=== PATIENT | female | born 1985 | race Caucasian/White ===

== ENCOUNTER → 2016-10-14 | Outpatient (CLI) | payer OTHER ==
[~2016-10-14] MED LIST: ASPI-390 PO; HYDR-4079 PO; MULT-506 PO; NORT10CA2 PO; VERA1TAB52 PO
== END | disposition home or self-care (01) ==
LOC: C.PAPS 09:14
PROVIDERS: ATTEND Obstetrics & Gynecology
DX: Z01.419 Encounter for gynecological examination (general) (routine) without abnormal findings (principal); Z87.898 Personal history of other specified conditions

== ENCOUNTER 2016-10-16 18:01 | Emergency (ER) | payer OTHER ==
[~2016-10-16] VITALS: Ht 167.6 cm; Wt 86.1 kg
[~2016-10-16 18:01] MED LIST changes: -ASPI-390 PO; -HYDR-4079 PO; -NORT10CA2 PO
[2016-10-16 18:12] VITALS: Ht 167.6 cm; Wt 86.1 kg
[2016-10-16] MEDS ORDERED: SODIUM CHLORIDE 0.9% 1000ML 1,000 ML IV STA (18:36)
[2016-10-16] MEDS ORDERED: KETOROLAC TROMETHAMINE 30 MG/ML VIAL IV STA (18:36)
[2016-10-16] MEDS ORDERED: PROCHLORPERAZINE 5 MG/ML 2 ML VIAL IV STA (18:36)
[2016-10-16] MEDS ORDERED: DiphenhydrAMINE HCL 50 MG/ML VIAL IV STA (18:36)
[2016-10-16] MEDS ORDERED: NORT10CA2 PO (18:40)
[2016-10-16] MEDS ORDERED: ASPI-390 PO (18:41)
[2016-10-16] MEDS ORDERED: HYDR-4079 PO (18:41)
[2016-10-16] MEDS ORDERED: DEXAMETHASONE SOD INJ 10 MG/ML VIAL IV ONE (18:45)
--- NOTE | 2016-10-16 19:41 | EMERGENCY ROOM VISIT NOTE ---
History First contact with patient: 18:23 Chief Complaint: HEADACHE Stated Complaint: MIGRANE History of Present Illness The patient is a 31 year old female who presents to the Emergency Department by private vehicle for evaluation of a migraine headache. She reports a long- standing history of migraine headaches for which she follows with Dr. Morin of neurology. She reports that she has taken nortriptyline and Vicodin without relief of symptoms. She reports photophobia, phonophobia, dizziness, blurry vision, nausea, and vomiting. She reports that all of these symptoms are consistent with previous migrainous headaches. She reports no new symptoms. This is not the worst headache of her life. She has had previous imaging studies of her brain which have been unremarkable. The patient denies any falls or recent head injury. She denies any fevers, chills, recent illness, or neck pain/stiffness. The patient rates her current discomfort as an 8/10. She denies any neck pain, numbness/weakness to the extremities, slurred speech, facial droop, unilateral weakness/numbness, chest pain, abdominal pain, hematemesis, hematochezia, or chance for . Review of Systems A complete 10-point Review of Systems was discussed with the patient, with pertinent positives and negatives listed in the History of Present Illness. All remaining Review of Systems questions can be considered negative unless otherwise specified. Past Medical/Surgical History Medical Problems: (1) Gastroparesis (2) Migraines (3) s/p repair paravaginal defect Family History No significant family history Social History Smoking Status: Current Every Day Smoker Smokeless Tobacco Use: No Alcohol Use: occasionally Drug Use: none Marital Status: Housing Status: lives with family Occupation Status: employed Current/Historical Medications Scheduled Multivitamin (Multivitamin), 1 TAB PO DAILY Nortriptyline (Pamelor), 10 MG PO QPM Scheduled PRN Cfohydl-Bpbghrflhtyyi-Vjiwfrja (Excedrin Migraine), 2 TAB PO DIRECTED PRN for Headache Hydrocodone/Acetaminophen 10MG/325MG ([place] 10MG/325MG), 1 TAB PO Q4H PRN for Pain Allergies Coded Allergies: Flu Virus Vaccine (Verified Allergy, Unknown, ANAPHYLAXIS, 06/28/16) Penicillamine (Verified Allergy, Unknown, HIVES, 01/25/15) Penicillins (Verified Allergy, Unknown, 10/16/16) Physical Exam Vital Signs Date Time Temp Pulse Resp B/P Pulse Ox O2 Delivery O2 Flow Rate FiO2 10/16/16 19:46 36.5 80 18 104/67 100 10/16/16 19:16 80 18 104/67 100 Room Air 10/16/16 18:12 36.5 110 20 130/82 97 Room Air Pain Rating (0-10): 8 Physical Exam VITAL SIGNS - Vital signs and nursing notes were reviewed. GENERAL - 31-year-old female appearing her stated age who is in no acute distress. Communicates well with provider and answers questions appropriately. HEAD - Normocephalic, Atraumatic. No Pena's Sign or Raccoon's Eyes. No depressed skull fractures palpable. EYES - PERRL with EOMI bilaterally. Sclera anicteric. Palpebral conjunctiva pink and moist with no injection noted. EARS - No deformities of external structures noted on gross examination bilaterally. No pain elicited with palpation of the tragus bilaterally. External auditory canals without discharge or otorrhea. Tympanic membranes pearly koch without retraction or bulging. NOSE - Midline and without cyanosis. No epistaxis or purulent drainage noted. Septum midline without deviation or septal hematoma noted. MOUTH/OROPHARYNX - Without perioral cyanosis. Buccal mucosa pink and moist and without leukoplakia. Tongue midline with equal elevation of palate bilaterally. No tonsillar hypertrophy, erythema, or exudates noted. Good dentition noted. NECK - Neck with FROM. Supple to palpation. No lymphadenopathy noted. No nuchal rigidity. LUNGS - Chest wall symmetric without accessory muscle use, intercostals retractions, or central cyanosis. Normal vesicular breath sounds CTA B/L. No wheezes, rales, or rhonchi appreciated. CARDIAC - RRR with S1/S2. No murmur, rubs, or gallops appreciated. EXTREMITIES - No pretibial edema present. +3/5 radial and dorsalis pedis pulses palpated throughout. FROM with no tremors, fasciculations, or clonus noted on PROM throughout. +5/5 strength noted in UE/LE bilaterally. NEUROLOGIC - Cranial nerves II through XII grossly intact. Sensory intact to light touch throughout. Patellar reflexes +2/4. Patient able to perform rapid alternating movements appropriately. Negative Pronator Drift. Negative finger-to -nose. PSYCH - A&Ox3 and cooperates fully with examiner. Pt is very pleasant and interacts well with examiner. Medical Decision & Procedures Medications Administered Medications (Trade) Dose Ordered Sig/Max Route Start Time Stop Time Status Last Admin Dose Admin Prochlorperazine Edisylate (Compazine Inj) 10 mg NOW STAT IV 10/16/16 18:36 10/16/16 18:39 DC 10/16/16 19:08 10 MG Diphenhydramine HCl (Benadryl Inj) 25 mg NOW STAT IV 10/16/16 18:36 10/16/16 18:39 DC 10/16/16 19:08 25 MG Ketorolac Tromethamine (Toradol Inj) 30 mg NOW STAT IV 10/16/16 18:36 10/16/16 18:39 DC 10/16/16 19:08 30 MG Dexamethasone Sodium Phosphate 10 mg 10 mg NOW ONCE IV 10/16/16 18:45 10/16/16 18:46 DC 10/16/16 19:07 10 MG Sodium Chloride (Nss 1000ml) 1,000 ml @ 999 mls/hr Q1H1M STAT IV 10/16/16 18:36 10/16/16 19:36 DC 10/16/16 18:50 999 MLS/HR ED Course Patient was seen and evaluated by myself. Previous emergency department visit notes were reviewed. IV lock was established. Patient was hydrated with a 1000 mL normal saline bolus. The patient received 10 g Decadron, 25 mg Benadryl , 10 mg Compazine, and 30 mg Toradol intravenously. Patient was monitored in the emergency Department for greater than 1.5 hours. She reports near complete resolve of her headache at this point. The patient was instructed to remain on her current course for her migraine headaches. She was encouraged to follow-up with her neurologist from today's visit. She was educated on worrisome symptoms for return visit to the emergency department. Patient discharged home in good condition. Medical Decision Given the patient's presentation and stated complaints, I did elect to perform the above-mentioned workup. The patient presents today with complaints of migraine headache. She has long-standing history of the same. She has no focal neurological deficits. Her exam is otherwise unremarkable. The patient complains responded to migraine cocktail. Patient will continue her current course of treatment outlined by her neurologist. She will return for any changing or worsening symptoms. Patient discharged home afebrile and in good condition. In the evaluation and treatment of this patient, the following differential diagnoses were considered: Migraine Headache, Intracranial Hemorrhage, Subdural Hematoma, Subarachnoid Hemorrhage, Cerebral Aneurysm, Temporal/Giant Cell Arteritis, Tension Headache, Meningitis, Encephalitis, or Hydrocephalus. Impression Primary Impression: Migraine Departure Information Dispostion Discharge/Transfer to [facility] Condition GOOD Referrals Charo Abdullahi M.D. (PCP) Patient Instructions ED Headache Migraine, My [facility] Additional Instructions You have been treated in the Emergency Department for a Headache. For pain control, you can use the following exeh-ujj-piqgpfo medicines (if >12 yo): - Regular strength (325mg/tab) Tylenol (acetaminophen) 2 tabs every 4-6 hours as needed. Do not exceed 12 tablets in a 24 hour period. Avoid taking more than 4 grams (4000 mg) of Tylenol per day. This includes any other sources of acetaminophen you may take on a regular basis. - Regular strength (200 mg/tab) Advil (ibuprofen) 1-2 tabs every 4-6 hours as needed. Do not exceed a dose of 3200 mg per day. You should relax in a quiet, dark place for the rest of the day. Avoid any possible triggers including: cigarette smoke, caffeine, nicotine, chocolate, wine, beer, loud noises or music, or bright lights. You should schedule a follow-up appointment in 2-3 days with your Primary Care Provider or established Neurologist for further evaluation and treatment of your Headache. Return to the Emergency Department if your current symptoms worsen despite treatment course outlined above, or if you develop any of the following symptoms : intractable pain despite aforementioned treatment course, visual disturbances , loss of vision, unilateral weakness or facial drooping, slurring of speech, loss of coordination, or loss of consciousness. Problem Qualifiers Primary Impression: Migraine Migraine type: other Status migrainosus presence: without status migrainosus Intractability: not intractable Qualified Codes: G43.809 - Other migraine, not intractable, without status migrainosus
[2016-10-16 19:46] VITALS: BP 104/67; PULSE 80; TEMP 36.5; O2SAT 100
== END 2016-10-16 19:48 | disposition home or self-care (01) ==
LOC: C.EDB 18:03 → C.EDC 19:48
DX: G43.909 Migraine, unspecified, not intractable, without status migrainosus (principal); K31.84 Gastroparesis; F17.200 Nicotine dependence, unspecified, uncomplicated; Z98.890 Other specified postprocedural states; Z79.899 Other long term (current) drug therapy; Z88.0 Allergy status to penicillin; Z88.8 Allergy status to other drugs, medicaments and biological substances

== ENCOUNTER 2017-09-22 02:58 | Emergency (ER) | payer OTHER ==
[~2017-09-22] VITALS: Ht 170.2 cm; Wt 76.9 kg
[~2017-09-22 02:58] MED LIST changes: +ASPI-390 PO; +HYDR-4079 PO; -VERA1TAB52 PO
[2017-09-22 03:02] VITALS: Ht 170.2 cm; Wt 76.9 kg
[2017-09-22] MEDS ORDERED: METOCLOPRAMIDE HCL INJ 5 MG/ML 2 ML VIAL IV STA (03:08)
[2017-09-22] MEDS ORDERED: SODIUM CHLORIDE 0.9% 1000ML 2,000 ML IV STA (03:08)
[2017-09-22] MEDS ORDERED: DiphenhydrAMINE HCL 50 MG/ML VIAL IV STA (03:08)
[2017-09-22] MEDS ORDERED: KETOROLAC TROMETHAMINE 30 MG/ML VIAL IV STA (03:08)
[2017-09-22 03:28] LABS: BASO % 0.1 %; BASO ABS # 0.01 K/uL (0-0.2); EOS % 0.8 %; EOS ABS # 0.06 K/uL (0-0.5); HEMATOCRIT 38.5 % (37-47); HEMOGLOBIN 13.5 g/dL (12.0-16.0); IG# 0.02 K/uL (0.00-0.02); LYMPH % 9.6 %; LYMPH ABS # 0.76 K/uL (1.2-3.4); MEAN CELL VOLUME 93.4 fL (80-100); MEAN CORPUSCULAR HEMOGLOBIN 32.8 pg (25-34); MEAN CORPUSCULAR HGB CONC 35.1 g/dl (32-36); MEAN PLATELET VOLUME 12.1 fL (7.4-10.4); MONO % 4.8 %; MONO ABS # 0.38 K/uL (0.11-0.59); NEUT % 84.4 %; PLATELET COUNT 161 K/uL (130-400); RED CELL DISTRIBUTION WIDTH CV 12.7 % (11.5-14.5); RED CELL DISTRIBUTION WIDTH SD 43.5 fL (36.4-46.3); WHITE BLOOD COUNT 7.93 K/uL (4.8-10.8)
[2017-09-22 03:48] LABS: CALCIUM 8.6 mg/dl (8.5-10.1); CREATININE 0.67 mg/dl (0.60-1.20); POTASSIUM 3.5 mmol/L (3.5-5.1)
[2017-09-22 04:01] LABS: INFLUENZA B ANTIGEN Neg for Influ B (NEG)
--- NOTE | 2017-09-22 04:13 | EMERGENCY ROOM VISIT NOTE ---
History First contact with patient: 03:02 Chief Complaint: VOMITING Stated Complaint: FLU Nursing Triage Summary: Patient c/o fever, headache, and vomiting that began last pm. Hx: migraine. History of Present Illness The patient is a 32 year old female who presents to the Emergency Room with complaints of fever, chills, cough, congestion, headache, nausea and vomiting with body aches and pains for the past day. Patient has a history of migraines. She did not get the flu shot. 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 Patient denies dyspnea, chest pain, abdominal pain, diarrhea, urinary symptoms, neck stiffness. Review of Systems See HPI for pertinent positives & negatives. A total of 10 systems reviewed and were otherwise negative. Past Medical/Surgical History Medical Problems: (1) Gastroparesis (2) Migraines (3) s/p repair paravaginal defect Family History No significant family history Social History Smoking Status: Never Smoker Alcohol Use: occasionally Drug Use: none Marital Status: Housing Status: lives with family Occupation Status: employed Current/Historical Medications Scheduled Multivitamin (Multivitamin), 1 TAB PO DAILY Scheduled PRN Xxivpar-Uqqibqaekison-Xevkdxsz (Excedrin Migraine), 2 TAB PO DIRECTED PRN for Headache Hydrocodone/Acetaminophen 10MG/325MG ([place] 10MG/325MG), 1 TAB PO Q4H PRN for Pain Physical Exam Vital Signs Date Time Temp Pulse Resp B/P (MAP) Pulse Ox O2 Delivery O2 Flow Rate FiO2 09/22/17 03:54 37.5 86 16 124/68 96 Room Air 09/22/17 03:02 37.5 116 16 128/81 96 Room Air Physical Exam VITALS: Vitals are noted on the nurse's note and reviewed by myself. Vital signs stable. GENERAL: White female vomiting, in no acute distress, nondiaphoretic, well- developed well-nourished. SKIN: The skin was without rashes, erythema, edema, or bruising. There is no tenting of the skin. Capillary reflex less than 2 seconds. HEAD: Normocephalic atraumatic. EARS: External auditory canals clear, tympanic membranes pearly koch without erythema or effusion bilaterally. EYES: Pupils equal round and reactive to light and accommodation. Conjunctivae without injection, sclerae without icterus. Extraocular movements intact. NOSE: Patent, turbinates without inflammation or discharge. No sinus tenderness. MOUTH: Mucous membranes mildly dry. Pharynx without erythema or exudate. Uvula midline. Airway patent. Tongue does not deviate. NECK: Supple without nuchal rigidity. No lymphadenopathy. No thyromegaly. Cervical spine is nontender. No JVD. HEART: Regular rate and rhythm without murmurs gallops or rubs. LUNGS: Clear to auscultation bilaterally without wheezes, rales or rhonchi. No dullness to percussion. No retractions or accessory muscle use. ABDOMEN: Positive bowel sounds x 4. Normal tympanic percussion. Soft, nontender, without masses or organomegaly. Lopez sign negative. No guarding or rebound tenderness. MUSCULOSKELETAL: No muscle atrophy, erythema, or edema noted. NEURO: Patient was alert and oriented to person place and time. Normal sensation to light and sharp touch. No focal neurological deficits. Medical Decision & Procedures Laboratory Results 09/22/17 03:15 Red Blood Count 4.12, Mean Corpuscular Volume 93.4, Mean Corpuscular Hemoglobin 32.8, Mean Corpuscular Hemoglobin Concent 35.1, Mean Platelet Volume 12.1, Neutrophils (%) (Auto) 84.4, Lymphocytes (%) (Auto) 9.6, Monocytes (%) (Auto) 4.8, Eosinophils (%) (Auto) 0.8, Basophils (%) (Auto) 0.1, Neutrophils # (Auto) 6.70, Lymphocytes # (Auto) 0.76, Monocytes # (Auto) 0.38, Eosinophils # (Auto) 0.06, Basophils # (Auto) 0.01 09/22/17 03:15 Test 09/22/17 03:09 09/22/17 03:15 Influenza Type A Antigen Neg for Influ A (NEG) Influenza Type B Antigen Neg for Influ B (NEG) White Blood Count 7.93 K/uL (4.8-10.8) Red Blood Count 4.12 M/uL (4.2-5.4) Hemoglobin 13.5 g/dL (12.0-16.0) Hematocrit 38.5 % (37-47) Mean Corpuscular Volume 93.4 fL (80-100) Mean Corpuscular Hemoglobin 32.8 pg (25-34) Mean Corpuscular Hemoglobin Concent 35.1 g/dl (32-36) Platelet Count 161 K/uL (130-400) Mean Platelet Volume 12.1 fL (7.4-10.4) Neutrophils (%) (Auto) 84.4 % Lymphocytes (%) (Auto) 9.6 % Monocytes (%) (Auto) 4.8 % Eosinophils (%) (Auto) 0.8 % Basophils (%) (Auto) 0.1 % Neutrophils # (Auto) 6.70 K/uL (1.4-6.5) Lymphocytes # (Auto) 0.76 K/uL (1.2-3.4) Monocytes # (Auto) 0.38 K/uL (0.11-0.59) Eosinophils # (Auto) 0.06 K/uL (0-0.5) Basophils # (Auto) 0.01 K/uL (0-0.2) RDW Standard Deviation 43.5 fL (36.4-46.3) RDW Coefficient of Variation 12.7 % (11.5-14.5) Immature Granulocyte % (Auto) 0.3 % Immature Granulocyte # (Auto) 0.02 K/uL (0.00-0.02) Anion Gap 5.0 mmol/L (3-11) Est Creatinine Clear Calc Drug Dose 130.1 ml/min Estimated GFR () 135.8 Estimated GFR (Non- 117.1 BUN/Creatinine Ratio 17.1 (10-20) Calcium Level 8.6 mg/dl (8.5-10.1) Medications Administered Medications (Trade) Dose Ordered Sig/Max Route Start Time Stop Time Status Last Admin Dose Admin Sodium Chloride 2,000 ml @ 999 mls/hr Q2H1M STAT IV 09/22/17 03:08 09/22/17 05:08 09/22/17 03:22 999 MLS/HR Ketorolac Tromethamine (Toradol Inj) 30 mg NOW STAT IV 09/22/17 03:08 09/22/17 03:10 DC 09/22/17 03:24 30 MG Metoclopramide HCl (Reglan Inj) 10 mg NOW STAT IV 09/22/17 03:08 09/22/17 03:10 DC 09/22/17 03:22 10 MG Diphenhydramine HCl (Benadryl Inj) 25 mg NOW STAT IV 09/22/17 03:08 09/22/17 03:10 DC 09/22/17 03:23 25 MG ED Course Prior records/ancillary studies reviewed. Triage Nursing notes reviewed. Additional history obtained from family. The patient's history was concerning for fever. Differential diagnosis: Etiologies such as viral syndrome, otitis, pharyngitis, pneumonia, influenza, meningitis, urinary tract infection, sepsis, bacteremia, as well as others were entertained. Physical examination: Patient is alert and vomiting ER treatment provided: IV fluids, Toradol, Reglan, Benadryl On reassessment the patient felt better. Diagnostics interpreted by me: The labs revealed no worrisome leukocytosis or electrolyte abnormality. Negative influenza Imaging studies: Chest x-ray with no acute consolidation, pneumothorax or free air per my interpretation This appears to be consistent with influenza-like illness. Patient was neurovascularly and neurologically intact. She had no signs of meningitis. She is tolerating fluids. She is advised to take medicines as directed, rest, stay well-hydrated and to follow-up family care in a few days or here in the ER sooner for high fevers, lethargy, neck stiffness, worsening signs or symptoms or as needed. By the evaluation outlined above emergent etiologies such as otitis, pharyngitis, pneumonia, meningitis, urinary tract infection, sepsis, bacteremia, as well as others were deemed relatively unlikely. The pt informed about the findings as listed above. All questions were answered and pleased with the treatment. Return instructions were outlined and the patient was discharged in stable condition. Referral: The patient was referred back to their primary care physician for follow-up in 2 to 3 days for a recheck of the current condition. case reviewed with my Attending Medical Decision As above Medication Reconcilliation Current Medication List: was personally reviewed by me Blood Pressure Screening Patient's blood pressure: Normal blood pressure Impression Primary Impression: Influenza Additional Impression: Headache Departure Information Dispostion Home / Self-Care Condition GOOD Referrals No Doctor, Assigned (PCP) Patient Instructions My [facility] Additional Instructions Acetaminophen(Tylenol) may be used for fever or pain. Use 1000mg every six hours as needed. Avoid using more than 3000mg in a 24 hour period. (AND/OR) Ibuprofen(Motrin, Advil) may be used for fever or pain. Use 600mg every six hours as needed. Take with food. Avoid using more than 2400mg in a 24 hour period. Do not use 2400mg per day for more than three consecutive days without physician direction. Prolonged inappropriate use can lead to stomach upset or ulcers. Afrin nasal spray: 2-3 sprays to each nostril twice daily as needed for congestion. Do not use for more than 3-4 days because it can lead to worsening rebound congestion. Pseudoephedrine(Sudaphed): 30-60mg every 6 hours as needed for nasal congestion. Do not take this with other stimulant products or supplements. Rest and drink plenty of fluids. Controlling your fever with Tylenol and Ibuprofen as above will make you feel better. Wash your hands after nose blowing, sneezing, or coughing. Most germs are spread through contact, therefore improper hygiene may result in your close contacts and loved ones becoming ill just like you. Continue current medications. Return to the ER for severe headache, neck stiffness, chest pain, difficulty breathing, fevers, vomiting, worsening of your condition, or as needed. Follow up with your primary physician this week for a recheck of your current condition. Problem Qualifiers
[2017-09-22] MEDS ORDERED: ONDANSETRON HOME PACK 4MG OD TAB ONE (04:18)
[2017-09-22 04:36] VITALS: BP 104/67; PULSE 93; TEMP 37.1; O2SAT 98
--- NOTE | 2017-09-22 07:17 | DIAGNOSTIC IMAGING REPORT ---
TWO VIEW CHEST CLINICAL HISTORY: Cough and fever. FINDINGS: PA and lateral chest radiographs are compared to study dated 09/27/2015. The cardiomediastinal silhouette is unremarkable. The lungs and pleural spaces are clear. There is no pneumothorax. The bony thorax appears intact. Cholecystectomy clips are noted. IMPRESSION: No active disease in the chest. Electronically signed by: Toro Turner M.D. 09/22/2017 7:16 AM Dictated Date/Time: 09/22/2017 7:16 AM
== END 2017-09-22 04:38 | disposition home or self-care (01) ==
LOC: C.EDB 02:59 → C.EDA 04:38
DX: J11.1 Influenza due to unidentified influenza virus with other respiratory manifestations (principal); G43.909 Migraine, unspecified, not intractable, without status migrainosus; K31.84 Gastroparesis

== ENCOUNTER 2022-07-03 20:16 | Inpatient (IN) ==
--- NOTE | 2022-07-03 20:39 | Emergency Department Note ---
Impression & Plan Chest pain, Body aches, Hypokalemia, Hypocalcemia ED Provider Note NAME: HATTIE DON AGE: 37 SEX: F : 1985 ARRIVES VIA: Ambulance INFORMANT: Patient, ED PROVIDER(S): Art Davalos DO CHIEF COMPLAINT: Flulike symptoms HPI: The patient is a 37-year-old female who presented to the emergency department for flulike symptoms. The patient describes chest burning which began earlier today. The patient states that she started having chest burning and palpitations. She checked her pulse at 1 point and states it was 170 bpm. She also states her pulse ox was low. She denies having any leg swelling. She does complain of a cough and sore throat. She also complains of a headache. She states that she has been exposed to the flu at work. She denies having any vomiting. She has had no abdominal pain. She denies having any diarrhea. She called 911 and arrived at the emergency department via ambulance. The patient states that she has a history of anxiety. She states that some of the symptoms could be from anxiety but she is also very concerned about the other symptoms. She states that she is been compliant with her outpatient medications otherwise. ROS: See above HPI for pertinent positives & negatives. A total of 10 systems reviewed and were otherwise negative. PAST MEDICAL HISTORY: See Below PAST SURGICAL HISTORY: See Below FAMILY HISTORY: See Below SOCIAL HISTORY: See Below HOME MEDICATIONS: See Below ALLERGIES: See Below VITALS: See Below PHYSICAL EXAMINATION: GENERAL: Patient is awake alert in no acute distress patient is resting comfortably and showing no signs of anxiety EYES: The conjunctivae are clear. The pupils are round and reactive. EARS, NOSE, MOUTH AND THROAT: The nose is without any evidence of any deformity. NECK: The neck is nontender and supple. RESPIRATORY: Normal respiratory effort is noted there is no evidence of wheezing rhonchi or rales CARDIOVASCULAR: Regular rate and rhythm noted there no murmurs rubs or gallops normal S1 normal S2. GASTROINTESTINAL: The abdomen is soft. Abdomen is nontender. MUSCULOSKELETAL/EXTREMITIES: There is no evidence of gross deformity full range of motion is noted in the hips and shoulders. SKIN: There is no obvious evidence of any rash. There are no petechiae, pallor or cyanosis noted. NEUROLOGIC: Patient is awake alert and oriented x3 strength is symmetric patellar reflexes are 2+ bilaterally MEDICAL DECISION MAKING: The patient is a 37-year-old female who presented to the emergency department for an evaluation of multiple complaints. The patient was unsure if she had the flu. She was having chest burning as well as difficulty breathing. I discussed patient's laboratory and radiographic studies with her. EKG did not appear to show any signs of ischemia. Cardiac biomarker was negative. She was found to multiple electrolyte abnormalities including calcium and potassium. These were replaced in the emergency department but given the degree of how low they are she may require further inpatient electrolyte replacement. For this reason the case was discussed with the [facility] hospitalist. Triage Nursing notes reviewed. Prior medical records reviewed Vital Signs: reviewed and remarkable for no significant abnormalities Differential diagnosis: Cardiac ischemia, aortic dissection, pulmonary embolism, pneumothorax, pneumonia, pericarditis, myocarditis, esophageal rupture, GERD, cholecystitis, pancreatitis, musculoskeletal, as well as other pathologies. ER treatment provided: See below Diagnostics interpreted by me: ECG: EKG was obtained in the emergency department. My interpretation is normal sinus rhythm at 80 bpm. There was no ectopy. There was no acute ST segment abnormalities noted. This was compared to a tracing from September 27, 2015. No changes were noted. Cardiac Monitoring: An order was placed for continuous cardiac monitoring. The monitor shows a rate of 78 bpm with sinus rhythm. Laboratory studies: As stated above and show below. Imaging studies: See below Consultation(s): Dr. Nova was notified about the patient. Past Med/Surg History Medical History Anxiety Gastroparesis H/O menorrhagia Migraines Surgical History Family history of reaction to anesthesia SON-HALLUCINATIONS H/O laparoscopy History of colonoscopy History of tooth extraction Hx of cholecystectomy S/P tubal ligation Family History Father Alcohol abuse Anxiety Grandmother Diabetes Mother Anxiety Sister Anxiety Grandmother (Maternal) Family history of diabetes mellitus Denies family history of Ovarian cancer Prostate cancer Heart disease Breast cancer Colorectal cancer Social History Smoking Status: Current some day smoker Tobacco Type: E-cigarettes / Vaping Age Started Using Tobacco: 15; Age Quit Using Tobacco: 29; packs per day: 2; Years Smoked: 14; Cigarettes Per Day: 40; Second Hand Exposure: Yes ( A CHILD); Hx Alcohol Use: Yes Alcohol type: wine Hx Substance Use: No Preferred Language: Belarusian Associate Chief Nurse Required: No Beliefs That Will Affect Care: None marital status: Current Living Situation: Family current occupational status: employed Feels Safe at Home: Yes Diet Comment: keto caffeine: Yes Dental Care, Regularly: Yes Physical Activity Frequency: 1-2 Times per Week Assistive Devices: Glasses Allergies Allergies Allergy/AdvReac Type Severity Reaction Status Date / Time Penicillins Allergy Severe Anaphylaxis Verified 07/03/22 20:58 Home Meds Home Medications Medication Instructions Recorded Confirmed dietary supplement 1 cap PO DAILY 07/03/22 07/03/22 Results & Data (ED) Vital Signs Vital Signs - 24 hr 07/03/22 20:42 07/03/22 20:10 07/03/22 21:00 Temperature 37.0 C Temperature Source Oral Pulse Rate 90 86 Pulse Rate from SpO2 Sensor 86 Respiratory Rate 20 16 Respiratory Effort / Characteristics Non-Labored Spontaneous Respiratory Depth Normal Blood Pressure 133/84 128/77 Blood Pressure Mean 100 94 Pulse Oximetry 99 99 95 Oxygen Delivery Method Room Air Room Air Room Air Sepsis Recent Fever Within 48 Hours No Sepsis New/Unexplained Change in Mental Status No Sepsis Action Taken by Nursing No Action Required 07/03/22 22:00 07/03/22 22:30 Temperature Temperature Source Pulse Rate 89 78 Pulse Rate from SpO2 Sensor 81 80 Respiratory Rate 20 24 Respiratory Effort / Characteristics Respiratory Depth Blood Pressure 114/83 Blood Pressure Mean 93 Pulse Oximetry 98 97 Oxygen Delivery Method Room Air Room Air Sepsis Recent Fever Within 48 Hours Sepsis New/Unexplained Change in Mental Status Sepsis Action Taken by [facility] Medications Current Medication List: was personally reviewed by me Laboratory Data Attestation: I reviewed the patient's lab results. Result diagrams: 07/03/22 20:08 07/03/22 21:27 Lab Results 07/03/22 07/03/22 07/03/22 Range/Units 20:08 20:08 20:08 WBC 7.83 (4.8-10.8) K/ul RBC 4.07 (3.93-5.22) M/uL Hgb 13.4 (12.0-16.0) g/dl Hct 37.5 (34.1-44.9) % MCV 92.1 (80.0-100.0) fL MCH 32.9 (25.0-34.0) pg MCHC 35.7 (32.0-36.0) g/dL RDW Std Deviation 39.6 (36.4-46.3) fL RDW Coeff of Kadi 11.8 (11.5-14.5) % Plt Count 198 (130-400) K/uL MPV 12.3 (9.4-12.3) fL Immature Gran % (Auto) 0.4 % Neut % (Auto) 62.1 % Lymph % (Auto) 29.5 % Bulloch % (Auto) 6.6 % Eos % (Auto) 1.1 % Baso % (Auto) 0.3 % Neut # (Auto) 4.86 (1.4-6.5) K/uL Lymph # (Auto) 2.31 (1.2-3.4) K/uL Bulloch # (Auto) 0.52 (0.24-0.82) K/uL Eos # (Auto) 0.09 (0-0.50) K/uL Baso # (Auto) 0.02 (0-0.2) K/uL Immature Gran # (Auto) 0.03 H (0.00-0.02) K/uL D-Dimer 240 (0-500) ug/L FEU Sodium Cancelled Potassium Cancelled Chloride Cancelled Carbon Dioxide Cancelled Anion Gap Cancelled BUN Cancelled Creatinine Cancelled Est Cr Clr Drug Dosing Cancelled Est GFR ( Amer) Cancelled Est GFR (Non-Af Amer) Cancelled BUN/Creatinine Ratio Cancelled Glucose Cancelled Calcium Cancelled Magnesium Total Bilirubin Cancelled AST Cancelled ALT Cancelled Alkaline Phosphatase Cancelled Troponin I High Sens < 2.3 (0-14) pg/ml Total Protein Cancelled Albumin Cancelled Globulin Cancelled Albumin/Globulin Ratio Cancelled Lipase 30 (11-82) U/L HCG, Qual (Negative) SARS-CoV-2 (PCR) (Negative) Influenza Type A (PCR) (Neg) Influenza Type B (PCR) (Neg) RSV (RT-PCR) (Neg) 07/03/22 07/03/22 07/03/22 Range/Units 20:08 20:08 20:27 WBC (4.8-10.8) K/ul RBC (3.93-5.22) M/uL Hgb (12.0-16.0) g/dl Hct (34.1-44.9) % MCV (80.0-100.0) fL MCH (25.0-34.0) pg MCHC (32.0-36.0) g/dL RDW Std Deviation (36.4-46.3) fL RDW Coeff of Kadi (11.5-14.5) % Plt Count (130-400) K/uL MPV (9.4-12.3) fL Immature Gran % (Auto) % Neut % (Auto) % Lymph % (Auto) % Bulloch % (Auto) % Eos % (Auto) % Baso % (Auto) % Neut # (Auto) (1.4-6.5) K/uL Lymph # (Auto) (1.2-3.4) K/uL Bulloch # (Auto) (0.24-0.82) K/uL Eos # (Auto) (0-0.50) K/uL Baso # (Auto) (0-0.2) K/uL Immature Gran # (Auto) (0.00-0.02) K/uL D-Dimer (0-500) ug/L FEU Sodium Potassium Chloride Carbon Dioxide Anion Gap BUN Creatinine Est Cr Clr Drug Dosing Est GFR ( Amer) Est GFR (Non-Af Amer) BUN/Creatinine Ratio Glucose Calcium Magnesium TNP Total Bilirubin AST ALT Alkaline Phosphatase Troponin I High Sens (0-14) pg/ml Total Protein Albumin Globulin Albumin/Globulin Ratio Lipase (11-82) U/L HCG, Qual Negative (Negative) SARS-CoV-2 (PCR) NEGATIVE (Negative) Influenza Type A (PCR) Negative (Neg) Influenza Type B (PCR) Negative (Neg) RSV (RT-PCR) Negative (Neg) 07/03/22 Range/Units 21:27 WBC (4.8-10.8) K/ul RBC (3.93-5.22) M/uL Hgb (12.0-16.0) g/dl Hct (34.1-44.9) % MCV (80.0-100.0) fL MCH (25.0-34.0) pg MCHC (32.0-36.0) g/dL RDW Std Deviation (36.4-46.3) fL RDW Coeff of Kadi (11.5-14.5) % Plt Count (130-400) K/uL MPV (9.4-12.3) fL Immature Gran % (Auto) % Neut % (Auto) % Lymph % (Auto) % Bulloch % (Auto) % Eos % (Auto) % Baso % (Auto) % Neut # (Auto) (1.4-6.5) K/uL Lymph # (Auto) (1.2-3.4) K/uL Bulloch # (Auto) (0.24-0.82) K/uL Eos # (Auto) (0-0.50) K/uL Baso # (Auto) (0-0.2) K/uL Immature Gran # (Auto) (0.00-0.02) K/uL D-Dimer (0-500) ug/L FEU Sodium 145 Potassium 2.1 L* Chloride 125 H Carbon Dioxide 17 L Anion Gap 3 BUN 7 Creatinine 0.24 L Est Cr Clr Drug Dosing 363.9 Est GFR ( Amer) > 150.0 Est GFR (Non-Af Amer) > 150.0 BUN/Creatinine Ratio 29.2 H Glucose 58 L Calcium 4.6 L* Magnesium Total Bilirubin 0.4 AST 9 L ALT 7 Alkaline Phosphatase 33 L Troponin I High Sens (0-14) pg/ml Total Protein 3.7 L Albumin 2.3 L Globulin 1.4 L Albumin/Globulin Ratio 1.6 Lipase (11-82) U/L HCG, Qual (Negative) SARS-CoV-2 (PCR) (Negative) Influenza Type A (PCR) (Neg) Influenza Type B (PCR) (Neg) RSV (RT-PCR) (Neg) Administered Medications Discontinued Medications Calcium Chloride 1,000 mg/ (Dextrose) 60 mls @ 240 mls/hr IV NOW STA Stop: 07/03/22 23:08 Last Admin: 07/03/22 23:37 Dose: 240 mls/hr Documented By: CAMERON Potassium Chloride (Potassium Chloride 10 Meq Tabcr) 20 meq PO NOW STA Stop: 07/03/22 22:36 Last Admin: 07/03/22 22:51 Dose: 20 meq Documented By: ALVAREZ Imaging Data Radiologist's Impression: Chest X-Ray 11/03/22 20:21 XR chest 1V portable CLINICAL HISTORY: Chest Pain TECHNIQUE: Single frontal radiograph of the chest was obtained. Comparison: Comparison is made to chest radiograph 09/27/2015 FINDINGS: No lines and tubes are seen. The cardiomediastinal silhouette is normal. The lungs are clear. No evidence of pleural effusion or pneumothorax. IMPRESSION: No acute chest disease. ACT 112: Negative or not required by law. Electronically signed by: Anderson López M.D. 07/03/2022 9:05 PM Discharge Plan Visit Data Chief Complaint: Flu Like Symptoms Stated Complaint: FLU-LIKE SYMPTOMS ED Provider: Art Davalos Discharge Problem: Chest pain, Body aches, Hypokalemia, Hypocalcemia Patient Disposition: Being Evaluated by Hospitalist Forms Stand Alone Forms: [facility] Prescriptions Prescriptions: No Action dietary supplement Capsule 1 cap PO DAILY Referrals Referrals: PCP,NO [Physician] -
[2022-07-03 20:43] LABS: Basophils # (auto) 0.02 K/uL (0-0.2); Basophils % (auto) 0.3 %; Eosinophils # (auto) 0.09 K/uL (0-0.50); Eosinophils % (auto) 1.1 %; Hematocrit (blood only) 37.5 % (34.1-44.9); Hemoglobin 13.4 g/dl (12.0-16.0); Immature Granulocytes # (auto) 0.03 K/uL (0.00-0.02); Immature Granulocytes % (auto) 0.4 %; Lymphocytes # (auto) 2.31 K/uL (1.2-3.4); Lymphocytes % (auto) 29.5 %; Mean Corpuscular Hemoglobin 32.9 pg (25.0-34.0); Mean Corpuscular Hgb Conc 35.7 g/dL (32.0-36.0); Mean Corpuscular Volume 92.1 fL (80.0-100.0); Mean Platelet Volume 12.3 fL (9.4-12.3); Monocytes # (auto) 0.52 K/uL (0.24-0.82); Monocytes % (auto) 6.6 %; Neutrophils # (auto) 4.86 K/uL (1.4-6.5); Neutrophils % (auto) 62.1 %; Platelet Count 198 K/uL (130-400); RDW Coefficient of Variation 11.8 % (11.5-14.5); RDW Standard Deviation 39.6 fL (36.4-46.3); Red Blood Count 4.07 M/uL (3.93-5.22); White Blood Count 7.83 K/ul (4.8-10.8)
[2022-07-03 21:03] LABS: D Dimer 240 ug/L FEU (0-500)
--- NOTE | 2022-07-03 21:07 | XRay Report ---
XR chest 1V portable CLINICAL HISTORY: Chest Pain TECHNIQUE: Single frontal radiograph of the chest was obtained. Comparison: Comparison is made to chest radiograph 09/27/2015 FINDINGS: No lines and tubes are seen. The cardiomediastinal silhouette is normal. The lungs are clear. No evid ence of pleural effusion or pneumothorax. IMPRESSION: No acute chest disease. ACT 112: Negative or not required by law. Electronically signed by: Anderson López M.D. 07/03/2022 9:05 PM
[2022-07-03 21:09] LABS: Troponin I High Sensitivity < 2.3 pg/ml (0-14)
[2022-07-03 21:12] LABS: Pregnancy Test, Serum Negative (Negative)
[2022-07-03 21:20] LABS: Lipase 30 U/L (11-82)
[2022-07-03 21:20] LABS: Influenza A virus by PCR Negative (Neg); Influenza B virus by PCR Negative (Neg); RSV by PCR Negative (Neg); SARS CoV2 RNA(COVID-19)Cepheid NEGATIVE (Negative)
[2022-07-03] MEDS ORDERED: POTASSIUM CHLORIDE 10 MEQ TABCR PO STA (22:35)
[2022-07-03 22:36] LABS: Alanine Aminotransferase 7 U/L (7-52); Albumin Globulin Ratio 1.6 (0.9-2); Albumin Level 2.3 gm/dl (3.4-5.0); Alkaline Phosphatase 33 U/L (34-104); Anion Gap 3 (3-11); Aspartate Aminotransferase 9 U/L (13-39); BUN Creatinine Ratio 29.2 (10-20); Bilirubin,Total 0.4 mg/dl (0.2-1.0); Blood Urea Nitrogen 7 mg/dl (6-23); Calcium 4.6 mg/dl (8.5-10.1); Carbon Dioxide 17 mmol/L (21-32); Chloride 125 mmol/L (98-107); Creatinine Clr Calc Pharmacy 363.9 ml/min; Est GFR (African American) > 150.0 ml/min; Est GFR (Non-African American) > 150.0 ml/min; Globulin 1.4 gm/dl (2.5-4.0); Glucose 58 mg/dl (70-99(Fasting)); Potassium 2.1 mmol/L (3.5-5.1); Sodium 145 mmol/L (136-145); Total Protein 3.7 gm/dl (6.0-8.3)
[2022-07-03] MEDS ORDERED: CALCIUM CHLORIDE 10% 1,000 MG in DEXTROSE 5% 50 ML IV STA (22:54)
[2022-07-03] MEDS ORDERED: MAGNESIUM SULFATE / D5W 1 GM/100 ML BAG IV STA (22:54)
[2022-07-03] MEDS ORDERED: POTASSIUM CHLORIDE / WTR 10 MEQ/100 ML PLCT IV ONE (22:54)
[2022-07-04 00:04] LABS: Magnesium 1.9 mg/dl (1.7-2.4)
--- NOTE | 2022-07-04 00:45 | History & Physical Report ---
Date of Service July 04, 2022 Assessment & Plan (1) Palpitations: Plan: 27yo female presenting with episodes of palpitations, reported heart rate to 170. Initial labs with hypokalemia and hypocalcemia. She was provided with supplementation in the ER. Repeat blood work 2 hours after initial set with normal K and Ca - possible lab error. -Telemetry monitoring -Repeat chemistry in AM - no additional supplementation at this time -Check 2D echo -Cardiology consultation if above studies are concerning -Check TSH and Lyme (2) Electrolyte abnormality: Plan: Possible laboratory error -Repeat chemistry in AM F/E/N - LR at 125mL/hr x 1 liter, repeat chemistry in AM, regular diet as tolerated Ppx - Low risk for DVT Code - Full Dispo - Admit to medical with telemetry History of Present Illness Chief Complaint: palpitations Primary Care Provider: Gayla Callahan MD Khalida Aldridge is a 37yo female with history of anxiety, migraine and gastroparesis presenting with palpitations. 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 This AM she woke up and felt very tired with a sore throat and a burning in her chest. She went to work and felt "off" all day - fatigue, malaise and persistent burning in her chest. She left work at 10:00 AM due to her symptoms and returned home. She laid down and took a nap then ate some lunch. Around 18:00 she had severe burning in her chest and the feeling of her heart racing. She checked her pulse ox and it was 96-97%, heart rate was 170. She also had an episode where her O2 level decreased to 84% with laying flat. She has had several episodes of heart racing. She reports having occasional palpitations before which were minimally symptomatic. No chest pain. No fever, chills, cough, SOB, abdominal pain, nausea, vomiting. She has alternating diarrhea and constipation which she has for years. Initial laboratory values in the ER with hypokalemia and hypocalcemia. Repeat labs within normal limits. She has been given KCl 30mEq, Mag 1gm and Calcium chloride x 1 amp Patient with no prior cardiac issues or history of arrhythmia. No family history of cardiac issues. She eats a well balanced diet. No history of eating disorder. No history of tick exposure. She drinks 1-2 caffeinated beverages daily. No stimulant use. She does take a dietary supplement called Trim (per [employer] is conjugated linoleic acid, liquid biocell) ER Course: Potassium 20mEq PO + 10mEq IV, Magnesium 1gm, Calcium chloride 1 amp Allergies Allergy/AdvReac Type Severity Reaction Status Date / Time Penicillins Allergy Severe Anaphylaxis Verified 07/03/22 20:58 Home Medications Medication Instructions Recorded Confirmed Type dietary supplement 1 cap PO DAILY 07/03/22 07/03/22 History Past Med/Surg History Medical History Anxiety Gastroparesis H/O menorrhagia Migraines Surgical History Family history of reaction to anesthesia SON-HALLUCINATIONS H/O laparoscopy History of colonoscopy History of tooth extraction Hx of cholecystectomy S/P tubal ligation Family History Father Alcohol abuse Anxiety Grandmother Diabetes Mother Anxiety Sister Anxiety Grandmother (Maternal) Family history of diabetes mellitus Denies family history of Ovarian cancer Prostate cancer Heart disease Breast cancer Colorectal cancer Social History Smoking Status: Current some day smoker Tobacco Type: E-cigarettes / Vaping Age Started Using Tobacco: 15; Age Quit Using Tobacco: 29; packs per day: 2; Years Smoked: 14; Cigarettes Per Day: 40; Second Hand Exposure: Yes ( A CHILD); Hx Alcohol Use: Yes Alcohol type: wine Hx Substance Use: No Preferred Language: Frisian 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 Beliefs That Will Affect Care: None marital status: Current Living Situation: Family current occupational status: employed Feels Safe at Home: Yes Diet Comment: keto caffeine: Yes Dental Care, Regularly: Yes Physical Activity Frequency: 1-2 Times per Week Assistive Devices: Glasses Review of Systems Review of Systems: All systems reviewed & are unremarkable except as noted in HPI & below Physical Exam Physical Exam: General: patient resting comfortably, NAD, non-toxic in appearance, AA&O x 4, anxious Skin: warm, dry, intact, no rashes or lesions HEENT: NC/AT, PERRL, EOMI, anicteric sclera, conjunctiva without injection, external ear normal to inspection and nontender, nares patent, moist mucus membranes, dentition intact, no oropharyngeal lesions, neck supple, trachea midline, no LAD, no thyromegaly, no JVD Heart: +S1/S2, slightly irregular, no m/r/g, sinus arrhythmia noted on monitor Lungs: equal air entry bilaterally, no rales/rhonchi/wheezes Abd: +BS, soft, NT/ND, no masses/organomegaly/ascites Ext: warm, 2+ pulses in UE/LE bilaterally, no clubbing/cyanosis or edema Neuro: nonfocal, patient AA&O x 4, speech intact, no facial droop, moving all extremities on command with equal strength 5/5 Results & Data Results & Data ([facility]) Vital Signs (Past 12 Hours) Vital Signs Temp Pulse Resp BP Pulse Ox O2 Del Method 07/04/22 00:00 87 17 147/91 H 100 Room Air 07/03/22 23:00 76 15 122/71 99 Room Air 07/03/22 22:30 78 24 97 Room Air 07/03/22 22:00 89 20 114/83 98 Room Air 07/03/22 21:00 86 16 128/77 95 Room Air 07/03/22 20:10 37.0 C 90 20 133/84 99 Room Air 07/03/22 20:42 99 Room Air Laboratory Results Laboratory Results WBC 7.83 K/ul (4.8-10.8) 07/03/22 20:08 RBC 4.07 M/uL (3.93-5.22) 07/03/22 20:08 Hgb 13.4 g/dl (12.0-16.0) 07/03/22 20:08 Hct 37.5 % (34.1-44.9) 07/03/22 20:08 MCV 92.1 fL (80.0-100.0) 07/03/22 20:08 MCH 32.9 pg (25.0-34.0) 07/03/22 20:08 MCHC 35.7 g/dL (32.0-36.0) 07/03/22 20:08 RDW Std Deviation 39.6 fL (36.4-46.3) 07/03/22 20:08 RDW Coeff of Kadi 11.8 % (11.5-14.5) 07/03/22 20:08 Plt Count 198 K/uL (130-400) 07/03/22 20:08 MPV 12.3 fL (9.4-12.3) 07/03/22 20:08 Immature Gran % (Auto) 0.4 % 07/03/22 20:08 Neut % (Auto) 62.1 % 07/03/22 20:08 Lymph % (Auto) 29.5 % 07/03/22 20:08 Cataño % (Auto) 6.6 % 07/03/22 20:08 Eos % (Auto) 1.1 % 07/03/22 20:08 Baso % (Auto) 0.3 % 07/03/22 20:08 Neut # (Auto) 4.86 K/uL (1.4-6.5) 07/03/22 20:08 Lymph # (Auto) 2.31 K/uL (1.2-3.4) 07/03/22 20:08 Cataño # (Auto) 0.52 K/uL (0.24-0.82) 07/03/22 20:08 Eos # (Auto) 0.09 K/uL (0-0.50) 07/03/22 20:08 Baso # (Auto) 0.02 K/uL (0-0.2) 07/03/22 20:08 Immature Gran # (Auto) 0.03 K/uL (0.00-0.02) H 07/03/22 20:08 D-Dimer 240 ug/L FEU (0-500) 07/03/22 20:08 Sodium 137 mmol/L (136-145) 07/03/22 23:22 Potassium 3.8 mmol/L (3.5-5.1) D 07/03/22 23:22 Chloride 106 mmol/L (98-107) 07/03/22 23:22 Carbon Dioxide 25 mmol/L (21-32) 07/03/22 23:22 Anion Gap 6 (3-11) 07/03/22 23:22 BUN 11 mg/dl (6-23) 07/03/22 23:22 Creatinine 0.56 mg/dl (0.6-1.2) L D 07/03/22 23:22 Est Cr Clr Drug Dosing 156.0 ml/min 07/03/22 23:22 Est GFR ( Amer) 139.0 ml/min 07/03/22 23:22 Est GFR (Non-Af Amer) 120.0 ml/min 07/03/22 23:22 BUN/Creatinine Ratio 19.6 (10-20) 07/03/22 23:22 Glucose 91 mg/dl (70-99(Fasting)) 07/03/22 23:22 Calcium 8.7 mg/dl (8.5-10.1) D 07/03/22 23:22 Magnesium 1.9 mg/dl (1.7-2.4) 07/03/22 23:22 Total Bilirubin 0.8 mg/dl (0.2-1.0) 07/03/22 23:22 AST 17 U/L (13-39) 07/03/22 23:22 ALT 13 U/L (7-52) 07/03/22 23:22 Alkaline Phosphatase 60 U/L (34-104) 07/03/22 23:22 Troponin I High Sens < 2.3 pg/ml (0-14) 07/03/22 20:08 Total Protein 6.8 gm/dl (6.0-8.3) D 07/03/22 23:22 Albumin 4.1 gm/dl (3.4-5.0) 07/03/22 23:22 Globulin 2.7 gm/dl (2.5-4.0) 07/03/22 23:22 Albumin/Globulin Ratio 1.5 (0.9-2) 07/03/22 23:22 Lipase 30 U/L (11-82) 07/03/22 20:08 HCG, Qual Negative (Negative) 07/03/22 20:08 SARS-CoV-2 (PCR) NEGATIVE (Negative) 07/03/22 20:27 Influenza Type A (PCR) Negative (Neg) 07/03/22 20:27 Influenza Type B (PCR) Negative (Neg) 07/03/22 20:27 RSV (RT-PCR) Negative (Neg) 07/03/22 20:27 Impressions Chest X-Ray 07/03/22 20:21 XR chest 1V portable CLINICAL HISTORY: Chest Pain TECHNIQUE: Single frontal radiograph of the chest was obtained. Comparison: Comparison is made to chest radiograph 09/27/2015 FINDINGS: No lines and tubes are seen. The cardiomediastinal silhouette is normal. The lungs are clear. No evidence of pleural effusion or pneumothorax. IMPRESSION: No acute chest disease. ACT 112: Negative or not required by law. Electronically signed by: Anderson López M.D. 07/03/2022 9:05 PM ECG Additional Comments: EKG wtih NSR at 80, normal axis, VY=916, SWS=898, RPj=537, possible LAE PG Care Time/CCT Total # of Minutes Spent Total Time Spent with Patient: Total time spent is greater than 50% in coordination of care (as documented) at patient's floor/unit and/or counseling patient: Coding Level of Care Code 04341 Initial Inpt Care Lvl 2 Diagnoses Palpitations R00.2 Electrolyte abnormality E87.8
[2022-07-04 00:55] LABS: Albumin Globulin Ratio 1.5 (0.9-2); Albumin Level 4.1 gm/dl (3.4-5.0); BUN Creatinine Ratio 19.6 (10-20); Bilirubin,Total 0.8 mg/dl (0.2-1.0); Calcium 8.7 mg/dl (8.5-10.1); Globulin 2.7 gm/dl (2.5-4.0); Potassium 3.8 mmol/L (3.5-5.1); Total Protein 6.8 gm/dl (6.0-8.3)
[2022-07-04] MEDS ORDERED: LACTATED RINGER'S 1,000 ML IV SCH (01:59)
[2022-07-04] MEDS ORDERED: ACETAMINOPHEN 325 MG TAB PO PRN (01:59)
[2022-07-04] MEDS ORDERED: ONDANSETRON INJ 2 MG/ML 2 ML VIAL IV PRN (01:59)
[2022-07-04 02:21] LABS: Phosphorus 3.7 mg/dl (2.5-4.9)
[2022-07-04 02:44] LABS: Lyme Ab IgG w/WB Rflx Negative (Negative); Lyme Ab IgM w/WB Rflx Negative (Negative)
--- NOTE | 2022-07-04 07:30 | Hospitalist Progress Note ---
Date of Service July 04, 2022 Assessment & Plan (1) Palpitations: (2) Electrolyte abnormality: Plan Palpitations 27yo female presenting with episodes of palpitations, reported heart rate to 170. Initial labs with hypokalemia and hypocalcemia. She was provided with supplementation in the ER. Repeat blood work 2 hours after initial set with normal K and Ca - possible lab error. -Telemetry monitoring -Repeat chemistry in AM - no additional supplementation at this time -Check 2D echo -Cardiology consultation if above studies are concerning -Check TSH and Lyme Hypokalemia/Hypocalcemia Possible laboratory error -Repeat chemistry in AM Gabapentin F/E/N - LR at 125mL/hr x 1 liter, repeat chemistry in AM, regular diet as tolerated Ppx - Low risk for DVT Code - Full Dispo - Admit to medical with telemetry Admission and Anticipated Discharge Date Admission Date: July 04, 2022 Aidee Gaxiola is a 37 year old female with history of anxiety, migraines and gastroparesis who presents for palpitations and heart rates in the 170s. She was admitted after being found to be hypokalemic and hypocalcemic. Patient received 30 mEq K PO, Magnesium 1 g, and Calcium chloride 1 amp in the ED. CXR was negative in ED. 07/04: Patient is asymptomatic this morning. She notes that yesterday she was extremely fatigued and was having burning in the center of her chest (non- radiating, non-crushing). She assumed that she was developing the flu until she began becoming tachycardic and hypoxemia when laying flat. She notes that her O2 saturation dropped to 88 and her heart rate was as high as 170. At this time she felt short of breath and was having pleuritic pain. She denies any headache or vision changes. Notes that she felt very anxious at this time, but 'there was no reason for her to be anxious'.She has no personal or family history of heart disease or arrhythmias. She has not started any new medications. She had a history of GERD, for which she would occasionally use famotidine. 0930 Nursing noted that patient is complaining of ongoing anxiety and requesting medication. Review of Systems Review of Systems: As per HPI Results & Data Results & Data ([facility]) Vital Signs (Past 12 Hours) Vital Signs Temp Pulse Pulse Resp BP BP Pulse Ox 07/04/22 02:01 07/04/22 02:01 36.5 C 84 19 129/81 97 07/04/22 01:00 67 14 119/80 97 07/04/22 00:00 87 17 147/91 H 100 07/03/22 23:00 76 15 122/71 99 07/03/22 22:30 78 24 97 07/03/22 22:00 89 20 114/83 98 07/03/22 21:00 86 16 128/77 95 07/03/22 20:10 37.0 C 90 20 133/84 99 07/03/22 20:42 99 O2 Del Method 07/04/22 02:01 Room Air 07/04/22 02:01 Room Air 07/04/22 01:00 Room Air 07/04/22 00:00 Room Air 07/03/22 23:00 Room Air 07/03/22 22:30 Room Air 07/03/22 22:00 Room Air 07/03/22 21:00 Room Air 07/03/22 20:10 Room Air 07/03/22 20:42 Room Air
--- NOTE | 2022-07-04 10:44 | Electrocardiogram Report ---
Test Reason : Blood Pressure : / mmHG Vent. Rate : 080 BPM Atrial Rate : 080 BPM P-R Int : 148 ms QRS Dur : 100 ms QT Int : 368 ms P-R-T Axes : 050 053 021 degrees QTc Int : 424 ms Normal sinus rhythm Possible Left atrial enlargement Borderline ECG When compared with ECG of 27-SEP-2015 08:12, No significant change was found Confirmed by Lebron Dover ([id number]) on 07/04/2022 10:44:03 AM Referred By: REFERRED SELF Confirmed By:Simone Dover
--- NOTE | 2022-07-04 11:14 | XCELERA ---
[id number]
[2022-07-04 15:20] LABS: BUN Creatinine Ratio 11.6 (10-20); Calcium 8.9 mg/dl (8.5-10.1); Creatinine Clr Calc Pharmacy 125.3 ml/min; Est GFR (African American) 129.8 ml/min; Potassium 4.4 mmol/L (3.5-5.1)
--- NOTE | 2022-07-04 15:35 | Discharge Summary ---
Date of Service July 04, 2022 Admission HPI Per Admitting Provider Khalida Aldridge is a 37yo female with history of anxiety, migraine and gastroparesis presenting with palpitations. 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 This AM she woke up and felt very tired with a sore throat and a burning in her chest. She went to work and felt "off" all day - fatigue, malaise and persistent burning in her chest. She left work at 10:00 AM due to her symptoms and returned home. She laid down and took a nap then ate some lunch. Around 18:00 she had severe burning in her chest and the feeling of her heart racing. She checked her pulse ox and it was 96-97%, heart rate was 170. She also had an episode where her O2 level decreased to 84% with laying flat. She has had several episodes of heart racing. She reports having occasional palpitations before which were minimally symptomatic. No chest pain. No fever, chills, cough, SOB, abdominal pain, nausea, vomiting. She has alternating diarrhea and constipation which she has for years. Initial laboratory values in the ER with hypokalemia and hypocalcemia. Repeat labs within normal limits. She has been given KCl 30mEq, Mag 1gm and Calcium chloride x 1 amp Patient with no prior cardiac issues or history of arrhythmia. No family history of cardiac issues. She eats a well balanced diet. No history of eating disorder. No history of tick exposure. She drinks 1-2 caffeinated beverages daily. No stimulant use. She does take a dietary supplement called Trim (per [employer] is conjugated linoleic acid, liquid biocell) ER Course: Potassium 20mEq PO + 10mEq IV, Magnesium 1gm, Calcium chloride 1 amp Admission Exam Per Admitting Provider General: patient resting comfortably, NAD, non-toxic in appearance, AA&O x 4, anxious Skin: warm, dry, intact, no rashes or lesions HEENT: NC/AT, PERRL, EOMI, anicteric sclera, conjunctiva without injection, external ear normal to inspection and nontender, nares patent, moist mucus membranes, dentition intact, no oropharyngeal lesions, neck supple, trachea midline, no LAD, no thyromegaly, no JVD Heart: +S1/S2, slightly irregular, no m/r/g, sinus arrhythmia noted on monitor Lungs: equal air entry bilaterally, no rales/rhonchi/wheezes Abd: +BS, soft, NT/ND, no masses/organomegaly/ascites Ext: warm, 2+ pulses in UE/LE bilaterally, no clubbing/cyanosis or edema Neuro: nonfocal, patient AA&O x 4, speech intact, no facial droop, moving all extremities on command with equal strength 5/5 Principal Diagnosis Palpitations Discharge Exam Gen: NAD, alert, interactive HEENT: Supple, no LAD, no thyromegaly Resp:Non-labored, congestion present in lung bases, otherwise CTAB CV:RRR, normal S1/S2, no M/R/G Abd: Soft, non-distended, no TTP, normoactive bowels, no masses Extr: 2+ dp bilaterally, no edema Skin: No rashes lesions or erythema Discharge Data Allergies Allergy/AdvReac Type Severity Reaction Status Date / Time Penicillins Allergy Severe Anaphylaxis Verified 07/03/22 20:58 Hospital Course (1) Palpitations: (2) Electrolyte abnormality: Bj Owen is a 27 year old female with history of anxiety (on Ativan PRN) and migraines who presents for evaluation of palpitations w/ associated shortness of breath and hypoxemia when laying flat. She was evaluated in the ER and found to be at regular rate and in NSR. Original labs showed hypokalemia and hypocalcemia. She was given potassium and calcium and her labs were re-checked and found to be normal (posible lab error at onset). Palpitations - Home HR reported in 170s w/ hypoxemia, notable burning in chest (without pain) and shortness of breath during episode - Patient had been experiencing increasing fatigue over the day prior and had assumed she had a virus (works as nurse at [employer]) - Original labs showing hypokelemia and hypocalcemia, given 30 mEq KCl, 1 g Mag, and 1 am Calcium in ED. - LR @ 125 ml/hr - Tele ordered: Sinus 70-80s throughout admission - Echocardiogram: normal - Lyme: negative - TSH: normal - Repeat BMP @1400: normal - COVID, Flu and RSV negative - Etiology considered anxiety vs dehydration vs viral infection vs arrhythmia - Recommend patient follow up with PCP for further evaluation outpatient - Consider Holter Monitor 48 hour - Encouraged adequate hydration (64 ounces daily) - Provided work excuse F/E/N - LR at 125mL/hr x 1 liter, repeat chemistry in AM, regular diet as tolerated Ppx - Low risk for DVT Code - Full Dispo - Admit to medical with telemetry Total Time Total Time Spent Total Time Spent (In Minutes): See attending attestation. Discharge Plan Discharge Items Patient Disposition: Home - Self-Care Reason For Visit: PALPITATIONS Discharge Diagnosis: Palpitations Activity: Resume your previous activity Non-emergency contact: Primary Care Provider Call non-emergency contact if: your symptoms worsen and your pain is worsening Follow-up/Referrals: Gayla Callahan MD [Primary Care Provider] - 07/11/22 11:00 am (Appointment with Lisa Escobedo PA-C) Diet: Regular Addtl Attending Provider Instructions: You were admitted to the hospital for palpitations. In the ER, your original labs were found to be low in potassium and calcium. You received a dose of potassium, magnesium, and calcium and your labs were re-checked. On repeat in the ER, your labs were all normal. During admission, we checked an echocardiogram, which resulted as normal. Your EKG and chest x-ray were negative. You were not found to have flu, COVID, or RSV. Repeat BMP was also normal. It is recommended that you continue to follow with your PCP regarding your palpitations and shortness of breath. A discharge summary will be sent to your primary care physician to ensure continuity of care. Please bring this discharge summary with you to your next office appointment so that your provider can review it at that time. Follow-up appointments: - Make a follow-up appointment with your PCP within the next week. It is very important that you follow up with them shortly after discharge from the [facility]. We have requested a follow-up appointment with your primary care physician within one week of discharge. Please call their office if you do not hear from them. - Recommending a Holter Monitor outpatient Medications: - Your medication list has been reviewed and reconciled upon discharge to ensure accuracy and continuity of care. An updated list of all your medications is included with your hospital discharge paperwork. Please review this list closely, and make note of any changes. - No changes. - Call your primary care provider before taking any new medicines (including over- the-counter medicines, vitamins, and supplements), because some of these may interact with your current medications, or may make your symptoms worse. Contact your Primary Care Provider if you experience: - Palpitations - Fever - Difficulty following your treatment plan or taking medications Call 911 or go to the emergency department if you experience: - Sudden, severe abdominal pain or nausea/vomiting - Severe chest pain, or chest pain that radiates (moves) to your jaw or arm - Sudden, severe shortness of breath or difficulty breathing It was a pleasure to be a part of your care, Dr. Noel Fuller Pending Studies at Discharge: No Stand-Alone Forms: My [facility], Work/School Release Medications and DC Order Prescriptions: Continued dietary supplement Capsule 1 cap PO DAILY Discharge Orders: Discharge Order (Routine); Ordered 07/04/22 Ordered By: Noel Fuller Admission Data Admit Date/Time: 07/04/22 00:44 Attending Provider: Genaro King Admit Provider: Carmen Nova Primary Care Provider: Gayla Callahan Other Interventions: Discharge Summary Assessment (RN) Last Done: 07/04/22 16:06 Supervising Physician Co-Signing Physician Notes Patient seen and examined with PGY-1 Dr. Fuller. Agree with hospital course. In brief, Brayden is a 37 year old female with history of anxiety (rare PRN use of lorazepam) admitted with palpitations and electrolyte derangement. In the ED, noted to be hypokalemic and hypocalcemic. IVFs given in the ED. EKG on admission unrevealing. D-dimer negative. Echo unremarkable. CCM reviewed and no arrhythmia here. Unclear etiology of palpitation and initial electrolyte disturbance, but did not recur during monitoring period. Remainder of work up can be done as an outpatient with her PCP. Did briefly discuss appropriate rest, recovery (she is working nearly 80 hour weeks at work). I personally spent 20 minutes discharge planning for this patient.
== END 2022-07-04 16:37 | disposition home or self-care (01) | DRG 641 ==
LOC: ED 20:16 → 2N 07-04 00:44 → SUATTDRO 07-04 00:44 → 2N 07-04 01:29